=== PATIENT | female | born 1945 ===

== ENCOUNTER 2018-08-24 08:45 | Inpatient (IN) | payer OTHER ==
[~2018-08-24] VITALS: Ht 157.5 cm; Wt 69.4 kg
[2018-08-24] MEDS ORDERED: LIPITOR20 MG PO (09:21)
[2018-08-24] MEDS ORDERED: FENOFIBRATE160 MG PO (09:21)
[2018-08-24] MEDS ORDERED: PLAVIX75 MG PO (09:21)
[2018-08-24] MEDS ORDERED: DILTIAZEM ER120 MG PO (09:22)
[2018-08-24] MEDS ORDERED: SINGULAIR 10MG10 MG PO (09:22)
[2018-08-24] MEDS ORDERED: ICAPS TABLET1 EACH PO (09:22)
[2018-08-24] MEDS ORDERED: DEPAKOTE ER500 MG PO (09:22)
[2018-08-24] MEDS ORDERED: EUCERIN DAILY400 ML (09:23)
[2018-08-24] MEDS ORDERED: [UNRECOGNIZED DRUG - OTHER] (09:23)
[2018-08-24] MEDS ORDERED: VITAMIN D310000 UNIT PO (09:23)
[2018-08-31] MEDS ORDERED: ELIQUIS2.5 MG PO (08:06)
[2018-08-31] MEDS ORDERED: OXYC1TAB9 PO (08:06)
[2018-08-31] MEDS ORDERED: INTEGRA PLUS C1 EACH PO (08:06)
== END 2018-08-31 14:36 | DRG 470 ==
LOC: SURH 08-29 06:42 → O/R 08-29 06:42 → RECOVERY 08-29 08:45 → SURH 08-29 10:47
PROVIDERS: ADMIT Orthopaedic Surgery Sports Medicine
PROC: 0SRC0J9 Replacement of Right Knee Joint with Synthetic Substitute, Cemented, Open Approach (ICD-10-PCS; principal; 2018-08-29 10:45)
DX: M17.11 Unilateral primary osteoarthritis, right knee (principal); E78.49 Other hyperlipidemia; J45.998 Other asthma; I10 Essential (primary) hypertension